=== PATIENT | female | born 1980 | race African-American/Black ===

== ENCOUNTER 2025-02-04 13:34 | Emergency (ER) | payer OTHER, SELFPAY ==
[2025-02-04] MEDS ORDERED: Acetaminophen 500 MG TAB ONE (14:38)
[2025-02-04] MEDS ORDERED: cloNIDine 0.1 MG TAB ONE (14:40)
== END 2025-02-04 16:56 | disposition home or self-care (01) ==
LOC: CSHERS 13:34
DX: R51.9 Headache, unspecified (principal); I10 Essential (primary) hypertension; Z76.0 Encounter for issue of repeat prescription; Z86.73 Personal history of transient ischemic attack (TIA), and cerebral infarction without residual deficits
CPT/HCPCS: 99283